=== PATIENT | male | born 1965 | race Caucasian/White ===

== ENCOUNTER 2022-09-11 16:09 | Emergency (ER) | payer OTHER ==
[~2022-09-11] VITALS: Ht 167.6 cm; Wt 81.7 kg
--- NOTE | 2022-09-19 20:28 | EKG ---
[facility] [address] [facility] [place] [address] Signed Normal sinus rhythm Normal ECG No previous ECGs available Confirmed by Dayan Terry MD () on 09/19/2022 8:27:55 PM Electronically Signed By: DAYAN TERRY MD 09/19/222027 PATIENT NAME: RICHIE OQUENDO Electrocardiogram DATE OF : 63 PHYSICIAN: DAYAN TERRY MD REPORT #: [id number] REPORT IS CONFIDENTIAL AND NOT TO BE RELEASED WITHOUT AUTHORIZATION
== END 2022-09-18 15:00 | disposition other institution, planned readmission (95) ==
LOC: ED 16:09
DX: R45.851 Suicidal ideations (principal)
CPT/HCPCS: 36415; 80053; 81003; 84443; 85025; 96372; 99285; A9270; A9270-GY; G0480; J1200; J1630; J2060; J3486; U0003

== ENCOUNTER 2022-09-18 18:31 | Emergency (ER) | payer OTHER ==
[~2022-09-18] VITALS: Ht 167.6 cm; Wt 81.7 kg
--- OUTSIDE RECORDS SUMMARY | 2022-09-18 18:34 | XMS ---
PreManage Notification: RICHIE OQUENDO [employer] Supervisor Events No recent Security Events currently on file CRITERIA MET - [facility] - 2 Visits in 30 Days CARE PROVIDERS There are no care providers on record at this time. Ezekiel has no Care Guidelines for this patient. Maria A VIS[facility] (12 MO.) [facility] NOTE: Visits indicate total known visits. ED/C VISIT TRACKING (12 MO.) [facility] COMPLAINT: - MEDICAL CLEARANCE 09/11/2022 16:11 [facility] [place] TYPE: Emergency COMPLAINT: - MEDICAL CLEARANCE DIAGNOSES: - Suicidal ideations INPATIENT VISIT TRACKING (12 MO.) No inpatient visits to display in this time frame [email or web address]
== END 2022-09-19 13:31 | disposition home or self-care (01) ==
LOC: ED 18:31
DX: S62.640A Nondisplaced fracture of proximal phalanx of right index finger, initial encounter for closed fracture (principal); F29 Unspecified psychosis not due to a substance or known physiological condition; X58.XXXA Exposure to other specified factors, initial encounter
CPT/HCPCS: 73140; 99284-25; A9270; A9270-GY